=== PATIENT | female | born 1965 | race Caucasian/White ===

== ENCOUNTER 2018-10-19 11:36 | Day surgery (SDC) | payer OTHER ==
[2018-10-19] MEDS ORDERED: MIDAZOLAM 1 MG/ML 2 ML INJ ×2 (14:34→14:35)
[2018-10-19] MEDS ORDERED: FENTAnyl 50 MCG/ML VIAL (14:34)
== END 2018-10-19 15:46 | disposition home or self-care (01) ==
LOC: GIL 11:36
DX: Z12.11 Encounter for screening for malignant neoplasm of colon (principal); K64.8 Other hemorrhoids; E11.9 Type 2 diabetes mellitus without complications
CPT/HCPCS: 45378; 82962